=== PATIENT | female | born 1930 | race Caucasian/White ===

== ENCOUNTER 2017-08-04 14:30 | Observation (INO) | payer MEDICARE ==
[~2017-08-04] VITALS: Ht 152.4 cm; Wt 49.4 kg
[2017-08-04] MEDS ORDERED: ASPIRIN 81 MG CHEW TAB PO ONE (15:15)
[2017-08-04 16:20] LABS: CLARITY,URINE CLEAR (CLEAR); COLOR,URINE YELLOW (YELLOW)
[2017-08-04 16:21] LABS: BILIRUBIN,URINE NEGATIVE (NEGATIVE); KETONES,URINE NEGATIVE (NEGATIVE); LEUKOCYTE ESTERASE ,URINE 1+ (NEGATIVE); NITRITE,URINE NEGATIVE (NEGATIVE); PROTEIN,URINE DIPSTICK NEGATIVE (NEGATIVE); URINE UROBILINOGEN 0.2 mg/dL (0.2 - 1)
--- NOTE | 2017-08-04 16:26 | Diagnostic Imaging Report ---
PROCEDURE: A single AP view of the chest. COMPARISON: None. INDICATIONS: AMS FINDINGS: Lines/tubes: None. Lungs: The lungs are well inflated and clear. There is no evidence of pneumonia or pulmonary edema. Pleura: There is no pleural effusion or pneumothorax. Heart and mediastinum: The heart and the mediastinum are unremarkable. Bones: No acute bony abnormality. Mild S-shaped curvature of the thoracolumbar spine. Upper abdomen: No free air under the diaphragm. Surgical clip projects over the right upper quadrant likely related to cholecystectomy. IMPRESSION: No acute cardiopulmonary disease. Dictated by: Uriel Okeefe M.D. on 08/04/2017 at 16:29 Electronically approved by: Uriel Okeefe M.D. on 08/04/2017 at 16:29
--- NOTE | 2017-08-04 16:36 | Diagnostic Imaging Report ---
History:Altered mental status Comparison studies:None Technique: Axial images were obtained from the skull base to the vertex. Coronal and sagittal images reconstructed from the axial data. Intravenous contrast: None Findings: Scalp/skull: No abnormalities. Extra-axial spaces: No masses. No fluid collections. Brain sulci: Mildly prominent. Ventricles: Mild compensatory dilatation. No hydrocephalus. Parenchyma: Left posterior MCA territory infarct involves the superior and middle temporal gyri and the adjacent angular region of the parietal lobe. Confluent and scattered hypodensities in the supratentorial white matter are small vessel ischemic changes. No acute intracranial hemorrhage, mass effect, or edema. Sellar/suprasellar region: No abnormalities. Craniocervical junction: Patent foramen magnum. No Chiari one malformation. Incidental findings: Atherosclerotic calcifications in the carotid siphons and distal vertebral arteries. Mild to moderate opacification of the left mastoid air cells. No abnormalities in the left nasopharynx. Impression: No acute intracranial abnormalities Chronic findings: 1. Mild generalized volume loss. 2. Chronic left posterior MCA territory infarct. 3. Moderate supratentorial white matter small vessel ischemic changes. Signed by: Dr. Jareth Dominguez M.D. on 08/04/2017 5:24 PM
[2017-08-04 16:37] LABS: EPITHELIAL CELLS,URINE MANY /LPF
[2017-08-04 16:39] LABS: RBC,URINE 0-5 /HPF (0-5)
[2017-08-04 16:41] LABS: BACTERIA,URINE RARE /HPF; RENAL EPITHELIAL CELLS,URINE FEW; TRANSITIONAL EPI CELLS,URINE MODERATE
[2017-08-04 17:28] LABS: BASOPHILS # (AUTO) 0.1 (0.0-0.1); BASOPHILS % 0.9 % (0.0-1.0); EOSINOPHILS # (AUTO) 0.5 (0.0-0.4); EOSINOPHILS % 5.8 % (0.0-6.0); HEMOGLOBIN 13.8 g/dL (12.0-16.0); LYMPHOCYTES # (AUTO) 2.2 (1.0-3.2); LYMPHOCYTES % 27.9 % (18.0-39.1); MEAN CORPUSCULAR HEMOGLOBIN 29.5 pg (28-32); MEAN CORPUSCULAR HGB CONC 32.9 g/dL (31-35); MEAN CORPUSCULAR VOLUME 89.7 fL (81-99); MONOCYTES # (AUTO) 0.7 (0.2-0.8); MONOCYTES % 8.4 % (4.4-11.3); NEUTROPHILS # (AUTO) 4.4 (2.1-6.9); NEUTROPHILS % 56.6 % (38.7-80.0); PLATELET COUNT 280 x10e3/uL (140-360); RED BLOOD COUNT 4.68 x10e6/uL (3.6-5.1); RED CELL DISTRIBUTION WIDTH 12.9 % (11.7-14.4)
[2017-08-04 17:36] LABS: INR 0.97; PROTHROMBIN TIME 12.1 seconds (11.9-14.5)
[2017-08-04 17:37] LABS: PARTIAL THROMBOPLASTIN TIME 26.7 seconds (23.8-35.5)
[2017-08-04 17:48] LABS: ALANINE AMINOTRANSFERASE 10 IU/L (0-55); ALBUMIN/GLOBULIN RATIO 1.3 (0.8-2.0); ALKALINE PHOSPHATASE 78 IU/L (40-150); ANION GAP 15.8 mmol/L (8-16); BLOOD UREA NITROGEN 14 mg/dL (7-26); BUN/CREATININE RATIO 18 (6-25); CARBON DIOXIDE 28 mmol/L (22-29); CHLORIDE 99 mmol/L (98-107); CREATINE KINASE 32 IU/L (29-168); CREATININE, SERUM 0.76 mg/dL (0.57-1.11); EST GLOMERULAR FILTRATION RATE > 60 ML/MIN (60-); GLUCOSE 106 mg/dL (74-118); MAGNESIUM 1.6 MG/DL (1.3-2.1); POTASSIUM 3.8 mmol/L (3.5-5.1); SODIUM 139 mmol/L (136-145)
[2017-08-04 18:08] LABS: THYROID STIMULATING HORMONE 2.185 uIU/mL (0.350-4.940)
[2017-08-04] MEDS ORDERED: ASPIRIN 325 MG TAB EC PO STA (18:37)
[2017-08-04] MEDS ORDERED: SODIUM CHLORIDE 0.9% 1000ML 1,000 ML IV SCH (18:37)
[2017-08-04] MEDS ORDERED: ONDANSETRON HCL INJ 2 MG/ML VIAL IV PRN (18:45)
[2017-08-05] MEDS ORDERED: TESSALON PERLE100 MG (00:11)
[2017-08-05] MEDS ORDERED: METFORMIN HCL500 MG PO (00:11)
[2017-08-05] MEDS ORDERED: MILK OF MA2400 MG/10 (00:11)
[2017-08-05] MEDS ORDERED: ASPIR 8181 MG (00:11)
[2017-08-05] MEDS ORDERED: METOPROLOL SUCC25 MG (00:11)
[2017-08-05] MEDS ORDERED: PLAVIX75 MG PO (00:11)
[2017-08-05] MEDS ORDERED: CLONIDINE HCL0.1 MG PO (00:11)
[2017-08-05] MEDS ORDERED: OMEPRAZOLE40 MG (00:11)
[2017-08-05 02:46] LABS: CREATINE KINASE 31 IU/L (29-168)
[2017-08-05 05:53] LABS: BASOPHILS # (AUTO) 0.1 (0.0-0.1); BASOPHILS % 1.3 % (0.0-1.0); EOSINOPHILS # (AUTO) 0.4 (0.0-0.4); EOSINOPHILS % 5.9 % (0.0-6.0); HEMATOCRIT 39.7 % (34.2-44.1); LYMPHOCYTES # (AUTO) 2.1 (1.0-3.2); MEAN CORPUSCULAR HEMOGLOBIN 29.3 pg (28-32); MEAN CORPUSCULAR HGB CONC 32.7 g/dL (31-35); MEAN CORPUSCULAR VOLUME 89.6 fL (81-99); MONOCYTES # (AUTO) 0.7 (0.2-0.8); MONOCYTES % 10.5 % (4.4-11.3); NEUTROPHILS # (AUTO) 3.5 (2.1-6.9); PLATELET COUNT 268 x10e3/uL (140-360); RED BLOOD COUNT 4.43 x10e6/uL (3.6-5.1); RED CELL DISTRIBUTION WIDTH 12.8 % (11.7-14.4)
[2017-08-05 06:25] LABS: ALANINE AMINOTRANSFERASE 9 IU/L (0-55); ALBUMIN 3.4 g/dL (3.5-5.0); ALBUMIN/GLOBULIN RATIO 1.2 (0.8-2.0); ALKALINE PHOSPHATASE 64 IU/L (40-150); ANION GAP 14.6 mmol/L (8-16); BLOOD UREA NITROGEN 13 mg/dL (7-26); BUN/CREATININE RATIO 18 (6-25); CALCIUM 8.9 mg/dL (8.4-10.2); CARBON DIOXIDE 23 mmol/L (22-29); CHLORIDE 106 mmol/L (98-107); CREATININE, SERUM 0.71 mg/dL (0.57-1.11); EST GLOMERULAR FILTRATION RATE > 60 ML/MIN (60-); GLUCOSE 125 mg/dL (74-118); POTASSIUM 4.6 mmol/L (3.5-5.1); SODIUM 139 mmol/L (136-145)
[2017-08-05] MEDS ORDERED: ASPIRIN 325 MG TAB EC PO SCH (09:00)
--- NOTE | 2017-08-05 09:56 | Diagnostic Imaging Report ---
Exam: Brain MRI without IV contrast History: Weakness, dizziness Comparison studies: Head CT the . Technique: Sagittal and axial T2 FS, axial DWI, axial T2*GRE, axial T1 FLAIR and axial coronal T2 FLAIR. Intravenous contrast: None Findings: Scalp: Normal in signal. No masses. Bone marrow: Normal in signal intensity. Brain sulci: Mildly prominent. Ventricles: Moderately dilated with ex vacuo dilatation of the left peritrigonal ventricle due to chronic insult described below. Ventriculomegaly is mildly disproportionate to sulcal prominence which may be related to degree of central greater peripheral cortical volume loss. Consider normal pressure hydrocephalus (NPH) only in the proper clinical setting. Extra axial spaces: No mass, no fluid collection. Parenchyma: No mass, acute hemorrhage or acute ischemia. Chronic insult with encephalomalacia, gliosis and laminar process in the posterior left temporal lobe, left parietal lobe and left lateral occipital lobe in the posterior left MCA territories/MCA cortical border zone. A few scattered and confluent T2 FLAIR hyperintense signal changes in the supratentorial white matter are nonspecific most compatible with chronic small vessel ischemic changes. Small chronic lacunar infarct in the left superior cerebellum. Suprasellar region: No abnormalities. Craniocervical junction: Patent foramen magnum. No Chiari malformation. Vessels: Normal flow-voids in the major intracranial arteries and dural venous sinuses. There is signal abnormality in the distal left internal cervical carotid arteries seen on the axial T2/T2 FLAIR sequence, unclear if this is flow related related to tortuosity or flow-limiting stenosis. Incidental findings: Nonspecific T2 hyperintense reactive changes in the left greater than right mastoids. IMPRESSION: No acute intracranial abnormalities. Chronic findings: 1. Moderate generalized volume loss. 2. Moderate chronic microvascular ischemic changes with small chronic left cerebellar lacunar infarct and chronic insult in the posterior left MCA/MCA cortical border zone. 3. Flow-related artifact versus signal abnormality related to proximal stenosis in the left cervical internal carotid artery. Cervical and intracranial CTA or MRA could further evaluate. 4. Nonspecific ventriculomegaly may be due to volume loss. Consider NPH only in the proper clinical setting. Findings and recommendations were discussed with Dr. Anthony at 9:50 AM on . Signed by: Dr. Gregg Phan M.D. on 08/05/2017 9:53 AM
[2017-08-05 10:14] LABS: CREATINE KINASE 33 IU/L (29-168)
== END 2017-08-05 12:00 | disposition home or self-care (01) ==
LOC: ER 14:30 → ERHOLD 19:10
DX: R53.1 Weakness (principal); R42 Dizziness and giddiness; I10 Essential (primary) hypertension; E11.9 Type 2 diabetes mellitus without complications; R55 Syncope and collapse; Z86.73 Personal history of transient ischemic attack (TIA), and cerebral infarction without residual deficits
CPT/HCPCS: 36415 ×2; 70450; 70551; 71045; 80053 ×2; 81001; 82550 ×2; 82553 ×2; 83735; 83880; 84443; 84484 ×2; 85025 ×2; 85610; 85730; 87086; 93005; 99284; G0378 ×2; J2405; J7030

== ENCOUNTER 2017-10-25 15:56 | Inpatient (IN) | payer MEDICARE ==
[~2017-10-25] VITALS: Ht 152.4 cm; Wt 48.3 kg
[~2017-10-25 15:56] MED LIST: ASPIR 8181 MG; CLONIDINE HCL0.1 MG PO; METFORMIN HCL500 MG PO; METOPROLOL SUCC25 MG; MILK OF MA2400 MG/10; OMEPRAZOLE40 MG PO; PLAVIX75 MG PO; TESSALON PERLE100 MG
[2017-10-25 16:54] LABS: BASOPHILS # (AUTO) 0.1 (0.0-0.1); BASOPHILS % 0.5 % (0.0-1.0); EOSINOPHILS # (AUTO) 0.1 (0.0-0.4); EOSINOPHILS % 1.2 % (0.0-6.0); HEMATOCRIT 42.6 % (34.2-44.1); HEMOGLOBIN 13.8 g/dL (12.0-16.0); LYMPHOCYTES # (AUTO) 0.9 (1.0-3.2); LYMPHOCYTES % 8.3 % (18.0-39.1); MEAN CORPUSCULAR HEMOGLOBIN 29.1 pg (28-32); MEAN CORPUSCULAR HGB CONC 32.4 g/dL (31-35); MEAN CORPUSCULAR VOLUME 89.7 fL (81-99); MONOCYTES # (AUTO) 0.1 (0.2-0.8); MONOCYTES % 1.2 % (4.4-11.3); NEUTROPHILS # (AUTO) 9.2 (2.1-6.9); NEUTROPHILS % 88.5 % (38.7-80.0); PLATELET COUNT 283 x10e3/uL (140-360); RED BLOOD COUNT 4.75 x10e6/uL (3.6-5.1); RED CELL DISTRIBUTION WIDTH 12.6 % (11.7-14.4)
[2017-10-25 16:59] LABS: INR 2.8; PARTIAL THROMBOPLASTIN TIME 32.6 seconds (23.8-35.5); PROTHROMBIN TIME 27.7 seconds (11.9-14.5)
[2017-10-25 17:08] LABS: ALANINE AMINOTRANSFERASE 12 IU/L (0-55); ALBUMIN 3.8 g/dL (3.5-5.0); ALKALINE PHOSPHATASE 105 IU/L (40-150); ANION GAP 21.5 mmol/L (8-16); BLOOD UREA NITROGEN 13 mg/dL (7-26); BUN/CREATININE RATIO 15 (6-25); CALCIUM 9.8 mg/dL (8.4-10.2); CARBON DIOXIDE 20 mmol/L (22-29); CHLORIDE 101 mmol/L (98-107); CREATINE KINASE 37 IU/L (29-168); CREATININE, SERUM 0.86 mg/dL (0.57-1.11); EST GLOMERULAR FILTRATION RATE > 60 ML/MIN (60-); GLUCOSE 122 mg/dL (74-118); MAGNESIUM 1.8 MG/DL (1.3-2.1); POTASSIUM 4.5 mmol/L (3.5-5.1); SODIUM 138 mmol/L (136-145)
[2017-10-25 17:43] LABS: BILIRUBIN,URINE NEGATIVE (NEGATIVE); CLARITY,URINE SL CLOUDY (CLEAR); COLOR,URINE YELLOW (YELLOW); KETONES,URINE NEGATIVE (NEGATIVE); LEUKOCYTE ESTERASE ,URINE 2+ (NEGATIVE); NITRITE,URINE NEGATIVE (NEGATIVE); PROTEIN,URINE DIPSTICK 2+ (NEGATIVE); URINE UROBILINOGEN 0.2 mg/dL (0.2 - 1)
[2017-10-25 17:53] LABS: BACTERIA,URINE MANY /HPF
[2017-10-25] MEDS: CEFTRIAXONE SOD 1 GM VIAL IV SCH (19:24)
--- NOTE | 2017-10-25 19:30 | Diagnostic Imaging Report ---
EXAMINATION: CHEST SINGLE (PORTABLE) COMPARISON: None INDICATION: Altered level of consciousness DISCUSSION: Frontal view of the chest obtained at 1904 hours. HEART AND MEDIASTINUM: The heart is normal in size. The aorta and aortic arch are ectatic LINES: None. LUNGS: The lungs are hyperinflated. Prominent reticular markings in the bases may be the result of chronic atelectasis or early fibrosis. No pneumonia or pulmonary edema. PLEURA: No pleural effusion or pneumothorax. BONES AND SOFT TISSUES: No focal osseous lesion. The soft tissues are normal. IMPRESSION: Pulmonary hyperinflation suggestive of COPD. Bibasilar subsegmental atelectasis or early fibrosis. Signed by: Dr. Gene Lutz MD on 10/25/2017 7:27 PM
--- NOTE | 2017-10-25 19:48 | Diagnostic Imaging Report ---
EXAMINATION: Head CT without contrast. HISTORY:Altered mental status. COMPARISON:CT brain from 08/04/2017 and MRI brain from 08/05/2017. TECHNIQUE: Multidetector axial images were obtained from the foramen magnum to the vertex without contrast. The images were reconstructed using brain and bone algorithms. Thin section brain images were reformatted into coronal and sagittal planes. Dose modulation, iterative reconstruction, and/or weight based adjustment of the mA/kV was utilized to reduce the radiation dose to as low as reasonably achievable. Intravenous contrast: None IMAGE QUALITY: Acceptable. FINDINGS: Skull/scalp: No lytic or blastic. lesions. No surgical changes. Parenchyma: Cortical-based hypodensity in left parieto-occipital region with regional volume loss and exvacuodilatation of the occipital horn and posterior body of left lateral ventricle represents chronic encephalomalacia related to prior vascular insult. Nonspecific bilateral frontoparietal patchy and confluent white matter hypodensity are likely related to small vessel ischemic changes. Old lacunar infarct in left caudate head and left cerebellar hemisphere. No acute hemorrhage, mass or acute major vascular territorial infarct. Possibility of superimposed acute on chronic vascular insult is not excluded. Arteries: No density suggestive of thrombosis. Atherosclerotic calcification bilateral carotid siphon. Dural sinuses: No abnormal density suggestive of thrombosis. Ventricles: Marked ventriculomegaly slightly disproportionate to the amount of cerebral volume loss. Exvacuodilatation of left lateral ventricle. No hydrocephalus. Extra-axial spaces: No abnormality Brain volume: Generalized age-related cerebral volume loss. Craniocervical junction: No mass, Chiari malformation, or basilar invagination. Sella: No mass. Paranasal/mastoid sinuses: Near complete opacification of left mastoid air cells. IMPRESSION: 1. No acute intracranial abnormality. 2. No change since MRI brain from 08/05/2017. Chronic findings: 1. Chronic encephalomalacia in left temporal, parietal occipital region from prior vascular insult. 2. Moderate supratentorial white matter microvascular ischemic changes and chronic lacunar infarcts as above. 3. Generalized age-related cerebral volume loss. 4. Nonspecific ventriculomegaly slightly disproportionate to the amount of cerebral volume loss, may represent normal pressure hydrocephalus in appropriate clinical setting. Signed by: Dr. Precious Chaves M.D. on 10/25/2017 7:44 PM
[2017-10-25] MEDS: SODIUM CHLORIDE 0.9% 1000ML 1,000 ML IV SCH ×2 (20:07→22:21)
[2017-10-25] MEDS ORDERED: DEXTROSE 50% SYRINGE 50 ML IV PRN (22:15)
[2017-10-26] VITALS (7 sets, daily range): BP systolic 114–164; BP diastolic 55–81
[2017-10-26 00:35] LABS: CREATINE KINASE MB 0.7 ng/mL (0-5.0)
[2017-10-26 04:41] LABS: BASOPHILS # (AUTO) 0.1 (0.0-0.1); BASOPHILS % 0.5 % (0.0-1.0); EOSINOPHILS # (AUTO) 0.1 (0.0-0.4); EOSINOPHILS % 0.4 % (0.0-6.0); HEMATOCRIT 36.7 % (34.2-44.1); LYMPHOCYTES # (AUTO) 1.7 (1.0-3.2); LYMPHOCYTES % 9.8 % (18.0-39.1); MEAN CORPUSCULAR HGB CONC 32.7 g/dL (31-35); MEAN CORPUSCULAR VOLUME 88.6 fL (81-99); MONOCYTES # (AUTO) 1.5 (0.2-0.8); MONOCYTES % 8.9 % (4.4-11.3); NEUTROPHILS # (AUTO) 13.5 (2.1-6.9); NEUTROPHILS % 79.9 % (38.7-80.0); PLATELET COUNT 269 x10e3/uL (140-360); RED BLOOD COUNT 4.14 x10e6/uL (3.6-5.1); RED CELL DISTRIBUTION WIDTH 12.9 % (11.7-14.4)
[2017-10-26 05:01] LABS: ALANINE AMINOTRANSFERASE 9 IU/L (0-55); ALBUMIN 3.1 g/dL (3.5-5.0); ALKALINE PHOSPHATASE 81 IU/L (40-150); ANION GAP 14.8 mmol/L (8-16); BLOOD UREA NITROGEN 15 mg/dL (7-26); BUN/CREATININE RATIO 18 (6-25); CALCIUM 8.9 mg/dL (8.4-10.2); CARBON DIOXIDE 24 mmol/L (22-29); CHLORIDE 102 mmol/L (98-107); CREATININE, SERUM 0.85 mg/dL (0.57-1.11); EST GLOMERULAR FILTRATION RATE > 60 ML/MIN (60-); GLUCOSE 123 mg/dL (74-118); POTASSIUM 3.8 mmol/L (3.5-5.1); SODIUM 137 mmol/L (136-145)
[2017-10-26] MEDS: CEFTRIAXONE SOD 1 GM VIAL IV SCH ×2 (05:29→16:44)
[2017-10-26] MEDS: SODIUM CHLORIDE 0.9% 1000ML 1,000 ML IV SCH ×3 (05:29→23:30)
[2017-10-26 05:38] LABS: CREATINE KINASE MB 0.7 ng/mL (0-5.0)
[2017-10-26 07:29] LABS: ANISOCYTOSIS SLIGHT; BAND NEUTROPHILS % (MANUAL) 1 %; EOSINOPHILS % (MANUAL) 3 % (0-7); LYMPHOCYTES % (MANUAL) 8 % (19-48); MONOCYTES % (MANUAL) 9 % (3.4-9.0); NEUTROPHILS % (MANUAL) 79 % (40-74); RBC MORPHOLOGY COMMENT NORMAL
[2017-10-26 07:30] LABS: PLATELET ESTIMATE ADEQUATE; PLATELET MORPHOLOGY COMMENT NORMAL
[2017-10-26] MEDS: INSULIN REGULAR, HUMAN 100 UNIT/1 ML 3ML VIAL SQ SCH ×4 (07:30→20:23)
[2017-10-26] MEDS ORDERED: MAGNESIUM HYDROXIDE 30 ML UDC PO SCH (09:45)
[2017-10-26] MEDS ORDERED: MAGNESIUM HYDROXIDE 30 ML UDC PO PRN (10:00)
--- NOTE | 2017-10-26 11:50 | Diagnostic Imaging Report ---
EXAMINATION: CHEST SINGLE (PORTABLE) INDICATION: Altered mental status. COMPARISON: Chest radiograph 10/25/17 FINDINGS: TUBES and LINES: None. LUNGS: Low lung volumes. Reticular opacities are present at the lung bases, right greater than left. There are new mild patchy left basilar opacities. No evidence of pulmonary edema. PLEURA: No pleural effusion or pneumothorax. HEART AND MEDIASTINUM: The cardiomediastinal silhouette is unchanged. Ectatic thoracic aorta. BONES AND SOFT TISSUES: No acute osseous lesion. Soft tissues are unremarkable. UPPER ABDOMEN: No free air under the diaphragm. IMPRESSION: Low lung volumes with bibasilar linear opacities may represent atelectasis or early fibrosis. New mild patchy left basilar opacities may represent atelectasis or aspiration in the appropriate clinical context. Signed by: Dr. Nguyễn Spring MD on 10/26/2017 11:47 AM
[2017-10-26] MEDS: CLONIDINE HCL 0.1 MG TAB PO SCH (17:01)
[2017-10-26] MEDS: ACETAMINOPHEN 325 MG TAB PO PRN (20:50)
[2017-10-27] VITALS (7 sets, daily range): BP systolic 97–193; BP diastolic 51–86
[2017-10-27 04:34] LABS: BASOPHILS # (AUTO) 0.1 (0.0-0.1); BASOPHILS % 0.6 % (0.0-1.0); EOSINOPHILS # (AUTO) 0.1 (0.0-0.4); EOSINOPHILS % 1.7 % (0.0-6.0); HEMOGLOBIN 10.8 g/dL (12.0-16.0); LYMPHOCYTES # (AUTO) 1.4 (1.0-3.2); LYMPHOCYTES % 16.9 % (18.0-39.1); MEAN CORPUSCULAR HEMOGLOBIN 29.3 pg (28-32); MEAN CORPUSCULAR HGB CONC 32.7 g/dL (31-35); MEAN CORPUSCULAR VOLUME 89.4 fL (81-99); MONOCYTES # (AUTO) 0.9 (0.2-0.8); MONOCYTES % 10.5 % (4.4-11.3); NEUTROPHILS # (AUTO) 5.9 (2.1-6.9); NEUTROPHILS % 69.9 % (38.7-80.0); RED BLOOD COUNT 3.69 x10e6/uL (3.6-5.1)
[2017-10-27 04:35] LABS: PLATELET COUNT 210 x10e3/uL (140-360)
[2017-10-27 04:43] LABS: INR 1.94; PROTHROMBIN TIME 20.8 seconds (11.9-14.5)
[2017-10-27 04:49] LABS: ANION GAP 10.8 mmol/L (8-16); BLOOD UREA NITROGEN 12 mg/dL (7-26); BUN/CREATININE RATIO 17 (6-25); CALCIUM 8.2 mg/dL (8.4-10.2); CARBON DIOXIDE 21 mmol/L (22-29); CHLORIDE 105 mmol/L (98-107); CREATININE, SERUM 0.72 mg/dL (0.57-1.11); EST GLOMERULAR FILTRATION RATE > 60 ML/MIN (60-); GLUCOSE 112 mg/dL (74-118); SODIUM 134 mmol/L (136-145)
[2017-10-27 04:58] LABS: POTASSIUM 2.8 mmol/L (3.5-5.1)
[2017-10-27] MEDS: CEFTRIAXONE SOD 1 GM VIAL IV SCH ×2 (05:37→18:36)
[2017-10-27] MEDS ORDERED: POTASSIUM CHLORIDE 20 MEQ TAB CR PO STA (05:53)
[2017-10-27] MEDS ORDERED: POTASSIUM CHLORIDE 20 MEQ TAB CR PO ONE (07:00)
[2017-10-27] MEDS: INSULIN REGULAR, HUMAN 100 UNIT/1 ML 3ML VIAL SQ SCH ×4 (07:30→21:00)
[2017-10-27] MEDS ORDERED: PANTOPRAZOLE SOD 40 MG TABEC PO SCH (09:00)
[2017-10-27] MEDS: CLONIDINE HCL 0.1 MG TAB PO SCH ×2 (09:42→17:14)
[2017-10-27] MEDS: PANTOPRAZOLE SOD 40 MG TABEC PO SCH (09:42)
[2017-10-27] MEDS: CLOPIDOGREL BISULFATE 75 MG TAB PO SCH (09:42)
[2017-10-27] MEDS ORDERED: WARFARIN SOD 3 MG TAB PO ONE (10:00)
--- NOTE | 2017-10-27 11:36 | Diagnostic Imaging Report ---
EXAMINATION: PA and lateral views of the chest. COMPARISON: 10/26/2017 CLINICAL HISTORY: Concern for aspiration DISCUSSION: Lungs are well-inflated. As before, there is patchy retrocardiac airspace opacity, which likely represents atelectasis. No new consolidations. Stable cardiomediastinal contour with tortuosity of the thoracic aorta. No acute osseous abnormality. IMPRESSION: Patchy retrocardiac airspace disease likely reflects atelectasis. No specific radiographic findings of aspiration. Signed by: Dr. Gregg Henson M.D. on 10/27/2017 11:33 AM
[2017-10-27] MEDS: SODIUM CHLORIDE 0.9% 1000ML 1,000 ML IV SCH (13:49)
[2017-10-27] MEDS: ACETAMINOPHEN 325 MG TAB PO PRN (20:25)
[2017-10-28] VITALS (8 sets, daily range): BP systolic 156–208; BP diastolic 68–96
[2017-10-28] MEDS: SODIUM CHLORIDE 0.9% 1000ML 1,000 ML IV SCH (04:20)
[2017-10-28 05:14] LABS: ANION GAP 12.1 mmol/L (8-16); BLOOD UREA NITROGEN 10 mg/dL (7-26); BUN/CREATININE RATIO 15 (6-25); CALCIUM 8.6 mg/dL (8.4-10.2); CARBON DIOXIDE 21 mmol/L (22-29); CHLORIDE 109 mmol/L (98-107); CREATININE, SERUM 0.67 mg/dL (0.57-1.11); EST GLOMERULAR FILTRATION RATE > 60 ML/MIN (60-); GLUCOSE 84 mg/dL (74-118); POTASSIUM 3.1 mmol/L (3.5-5.1); SODIUM 139 mmol/L (136-145)
[2017-10-28] MEDS: CEFTRIAXONE SOD 1 GM VIAL IV SCH ×2 (06:21→18:42)
[2017-10-28] MEDS: INSULIN REGULAR, HUMAN 100 UNIT/1 ML 3ML VIAL SQ SCH ×4 (07:30→20:37)
[2017-10-28] MEDS: CLONIDINE HCL 0.1 MG TAB PO SCH ×2 (07:50→16:15)
[2017-10-28] MEDS: CLOPIDOGREL BISULFATE 75 MG TAB PO SCH (10:25)
[2017-10-28] MEDS: PANTOPRAZOLE SOD 40 MG TABEC PO SCH (10:25)
[2017-10-28] MEDS ORDERED: POTASSIUM CHLORIDE 20 MEQ TAB CR PO ONE (10:30)
[2017-10-28 10:44] LABS: INR 1.74; PROTHROMBIN TIME 19.1 seconds (11.9-14.5)
[2017-10-28] MEDS ORDERED: FUROSEMIDE INJ 10 MG/ML 2 ML VIAL IV ONE (16:15)
[2017-10-28] MEDS: METOPROLOL TARTRATE 25 MG TAB PO SCH (16:18)
[2017-10-28] MEDS ORDERED: ALPRAZOLAM 0.5 MG TAB PO ONE (20:00)
[2017-10-29] MEDS: CEFTRIAXONE SOD 1 GM VIAL IV SCH (06:22)
[2017-10-29 06:29] VITALS: BP 174/73
[2017-10-29] MEDS: INSULIN REGULAR, HUMAN 100 UNIT/1 ML 3ML VIAL SQ SCH ×3 (07:30→16:22)
[2017-10-29 08:00] VITALS: BP 161/77
[2017-10-29 08:05] VITALS: BP 161/77
[2017-10-29] MEDS: CLONIDINE HCL 0.1 MG TAB PO SCH ×2 (08:22→16:20)
[2017-10-29] MEDS: PANTOPRAZOLE SOD 40 MG TABEC PO SCH (08:23)
[2017-10-29] MEDS: CLOPIDOGREL BISULFATE 75 MG TAB PO SCH (08:23)
[2017-10-29] MEDS: METOPROLOL TARTRATE 25 MG TAB PO SCH ×2 (08:23→16:20)
[2017-10-29 10:03] LABS: INR 1.32; PROTHROMBIN TIME 15.4 seconds (11.9-14.5)
[2017-10-29 11:11] LABS: ANION GAP 17.1 mmol/L (8-16); BLOOD UREA NITROGEN 12 mg/dL (7-26); BUN/CREATININE RATIO 15 (6-25); CALCIUM 9.1 mg/dL (8.4-10.2); CARBON DIOXIDE 20 mmol/L (22-29); CHLORIDE 101 mmol/L (98-107); CREATININE, SERUM 0.81 mg/dL (0.57-1.11); EST GLOMERULAR FILTRATION RATE > 60 ML/MIN (60-); GLUCOSE 201 mg/dL (74-118); POTASSIUM 4.1 mmol/L (3.5-5.1); SODIUM 134 mmol/L (136-145)
[2017-10-29 12:00] VITALS: BP 133/64
[2017-10-29] MEDS ORDERED: CEFUROXIME250 MG PO (12:10)
[2017-10-29] MEDS ORDERED: MAGNESIUM SULFATE 2GM/50ML 50 ML IV ONE ×2 (12:15)
[2017-10-29 16:00] VITALS: BP 168/76
[2017-10-29] MEDS ORDERED: WARFARIN SOD 5 MG TAB PO SCH (17:00)
== END 2017-10-29 16:46 | disposition home health service (06) | DRG 689 ==
LOC: ER 15:56 → ERHOLD 22:10 → MED/SURG2 23:21
PROVIDERS: ADMIT Internal Medicine; ATTEND Internal Medicine
DX: N39.0 Urinary tract infection, site not specified (principal); G93.41 Metabolic encephalopathy; I48.2 Chronic atrial fibrillation; I10 Essential (primary) hypertension; Z79.01 Long term (current) use of anticoagulants; B96.1 Klebsiella pneumoniae [K. pneumoniae] as the cause of diseases classified elsewhere; Z86.73 Personal history of transient ischemic attack (TIA), and cerebral infarction without residual deficits
CPT/HCPCS: 36415; 51700; 70450; 71045; 71046; 80048; 80053; 81001; 82550; 82553; 82948; 83735; 84484; 85025; 85610; 85730; 87040; 87086; 87186; 93005; 99285; J0696; J1940; J7030

== ENCOUNTER 2017-11-02 16:44 | Inpatient (IN) | payer MEDICARE ==
[~2017-11-02] VITALS: Ht 153.7 cm; Wt 53.7 kg
[~2017-11-02 16:44] MED LIST changes: +CEFUROXIME250 MG PO
[2017-11-02 17:53] LABS: BASOPHILS # (AUTO) 0.1 (0.0-0.1); BASOPHILS % 1.2 % (0.0-1.0); EOSINOPHILS # (AUTO) 0.5 (0.0-0.4); EOSINOPHILS % 5.7 % (0.0-6.0); HEMATOCRIT 39.5 % (34.2-44.1); HEMOGLOBIN 12.8 g/dL (12.0-16.0); LYMPHOCYTES # (AUTO) 2.6 (1.0-3.2); LYMPHOCYTES % 30.7 % (18.0-39.1); MEAN CORPUSCULAR HEMOGLOBIN 28.9 pg (28-32); MEAN CORPUSCULAR HGB CONC 32.4 g/dL (31-35); MEAN CORPUSCULAR VOLUME 89.2 fL (81-99); MONOCYTES # (AUTO) 0.9 (0.2-0.8); MONOCYTES % 10.2 % (4.4-11.3); NEUTROPHILS # (AUTO) 4.3 (2.1-6.9); NEUTROPHILS % 51.6 % (38.7-80.0); PLATELET COUNT 387 x10e3/uL (140-360); RED BLOOD COUNT 4.43 x10e6/uL (3.6-5.1); RED CELL DISTRIBUTION WIDTH 12.7 % (11.7-14.4)
[2017-11-02 18:00] LABS: CLARITY,URINE CLEAR (CLEAR); COLOR,URINE YELLOW (YELLOW)
[2017-11-02 18:01] LABS: BILIRUBIN,URINE NEGATIVE (NEGATIVE); KETONES,URINE NEGATIVE (NEGATIVE); LEUKOCYTE ESTERASE ,URINE NEGATIVE (NEGATIVE); NITRITE,URINE NEGATIVE (NEGATIVE); PROTEIN,URINE DIPSTICK NEGATIVE (NEGATIVE); URINE UROBILINOGEN 0.2 mg/dL (0.2 - 1)
[2017-11-02 18:05] LABS: ALANINE AMINOTRANSFERASE 11 IU/L (0-55); ALBUMIN 3.5 g/dL (3.5-5.0); ALBUMIN/GLOBULIN RATIO 0.9 (0.8-2.0); ALKALINE PHOSPHATASE 84 IU/L (40-150); ANION GAP 19.7 mmol/L (8-16); BLOOD UREA NITROGEN 13 mg/dL (7-26); BUN/CREATININE RATIO 16 (6-25); CARBON DIOXIDE 22 mmol/L (22-29); CHLORIDE 102 mmol/L (98-107); CREATININE, SERUM 0.79 mg/dL (0.57-1.11); EST GLOMERULAR FILTRATION RATE > 60 ML/MIN (60-); GLUCOSE 128 mg/dL (74-118); POTASSIUM 3.7 mmol/L (3.5-5.1); SODIUM 140 mmol/L (136-145)
[2017-11-02 18:15] LABS: WBC,URINE (MAN) 0-5 /HPF (0-5)
[2017-11-02] MEDS ORDERED: WARFARIN SODIUM3 MG PO (18:41)
[2017-11-02] MEDS ORDERED: CLONIDINE HCL 0.1 MG TAB ONE (19:24)
--- NOTE | 2017-11-02 19:24 | Diagnostic Imaging Report ---
EXAMINATION: CHEST SINGLE (PORTABLE) INDICATION: \S\LACTIC ACIDEMIA AMS \S\[id number] \S\[id number] COMPARISON: 10/27/2017 FINDINGS: AP view TUBES and LINES: None. LUNGS: Limited by low lung volumes. Mild central vascular congestion. There is no evidence of pneumonia or pulmonary edema. PLEURA: No pleural effusion or pneumothorax. HEART AND MEDIASTINUM: The cardiomediastinal silhouette is unremarkable. Aorta is tortuous. BONES AND SOFT TISSUES: No acute osseous lesion. Soft tissues are unremarkable. UPPER ABDOMEN: No free air under the diaphragm. IMPRESSION: No definite acute thoracic abnormality. Mild central vascular congestion. Signed by: Dr. Nelson Serrano MD on 11/02/2017 7:20 PM
[2017-11-02] MEDS ORDERED: CLONIDINE HCL 0.1 MG TAB PO ONE (19:30)
--- NOTE | 2017-11-02 20:10 | Diagnostic Imaging Report ---
History:Altered mental status Comparison studies:None Technique: Axial images were obtained from the skull base to the vertex. Coronal and sagittal images reconstructed from the axial data. Intravenous contrast: None Dose modulation, iterative reconstruction, and/or weight based adjustment of the mA/kV was utilized to reduce the radiation dose to as low as reasonably achievable. Findings: Scalp/skull: No abnormalities. Extra-axial spaces: No masses. No fluid collections. Brain sulci: Moderately prominent. Ventricles: Moderate compensatory dilatation. No hydrocephalus. Parenchyma: Scattered and confluent hypodensities in the supratentorial white matter are small vessel ischemic changes. Cortical-based hypodensity at the left posterior temporal and inferior parietal lobule with exvacuodilatation of the posterior lateral ventricle No masses, hemorrhage, acute or chronic cortical vascular insults. Sellar/suprasellar region: No abnormalities. Craniocervical junction: Patent foramen magnum. No Chiari one malformation. Incidental findings: Atherosclerotic calcifications in the carotid siphons . Opacification of the left mastoid air cells and middle ear, related to inflammatory changes Impression: No acute abnormalities. Chronic findings: 1. Moderate volume loss more significant at the temporal lobes. 2. Moderate supratentorial white matter small vessel ischemic changes. 3. Encephalomalacia at the left posterior temporal and inferior parietal lobule secondary to remote insult 4. Left otomastoiditis. Signed by: DR Everett Zhao M.D. on 11/02/2017 8:06 PM
[2017-11-02] MEDS ORDERED: DEXTROSE 50% SYRINGE 50 ML IV PRN ×2 (23:30)
[2017-11-03] VITALS (7 sets, daily range): BP systolic 111–163; BP diastolic 64–96
[2017-11-03 04:46] LABS: BASOPHILS # (AUTO) 0.1 (0.0-0.1); BASOPHILS % 1.1 % (0.0-1.0); EOSINOPHILS # (AUTO) 0.4 (0.0-0.4); EOSINOPHILS % 6.1 % (0.0-6.0); HEMATOCRIT 35.6 % (34.2-44.1); HEMOGLOBIN 11.7 g/dL (12.0-16.0); LYMPHOCYTES # (AUTO) 2.4 (1.0-3.2); LYMPHOCYTES % 33.6 % (18.0-39.1); MEAN CORPUSCULAR HEMOGLOBIN 28.7 pg (28-32); MEAN CORPUSCULAR HGB CONC 32.9 g/dL (31-35); MEAN CORPUSCULAR VOLUME 87.5 fL (81-99); MONOCYTES # (AUTO) 0.8 (0.2-0.8); MONOCYTES % 11.3 % (4.4-11.3); NEUTROPHILS # (AUTO) 3.4 (2.1-6.9); NEUTROPHILS % 47.5 % (38.7-80.0); PLATELET COUNT 349 x10e3/uL (140-360); RED BLOOD COUNT 4.07 x10e6/uL (3.6-5.1); RED CELL DISTRIBUTION WIDTH 12.6 % (11.7-14.4)
[2017-11-03 05:08] LABS: ANION GAP 15.6 mmol/L (8-16); BLOOD UREA NITROGEN 11 mg/dL (7-26); BUN/CREATININE RATIO 14 (6-25); CALCIUM 9.2 mg/dL (8.4-10.2); CARBON DIOXIDE 24 mmol/L (22-29); CHLORIDE 104 mmol/L (98-107); CREATININE, SERUM 0.77 mg/dL (0.57-1.11); EST GLOMERULAR FILTRATION RATE > 60 ML/MIN (60-); GLUCOSE 136 mg/dL (74-118); POTASSIUM 3.6 mmol/L (3.5-5.1); SODIUM 140 mmol/L (136-145)
[2017-11-03] MEDS: INSULIN REGULAR, HUMAN 100 UNIT/1 ML 3ML VIAL SQ SCH ×4 (07:30→21:02)
[2017-11-03] MEDS ORDERED: INSULIN REGULAR, HUMAN 100 UNIT/1 ML 3ML VIAL SQ SCH (07:30)
[2017-11-03] MEDS: CLONIDINE HCL 0.1 MG TAB PO SCH ×2 (10:00→16:54)
[2017-11-03] MEDS ORDERED: BENZONATATE 100 MG CAP PO PRN (11:45)
[2017-11-03] MEDS ORDERED: MAGNESIUM HYDROXIDE 30 ML UDC PO PRN (11:45)
--- NOTE | 2017-11-03 12:27 | History and Physical ---
Ms. Walsh is a complex and very elderly 87-year-old woman who presented to the emergency room under the care of her daughter in the evening of the with a complaint of weakness and fall. HISTORY OF PRESENT ILLNESS: The daughter tells me that Ms. Walsh had been sitting out in the patio and that when she attempted to get up to come into the house, she could not use her walker and could not walk and was helped down to the floor. PAST MEDICAL HISTORY: Significant for previous cerebrovascular accident, hospitalized in [place], [place] in August 2016. She evidently had atrial fibrillation at that time and has used antiplatelet anticoagulants since then. CURRENT HOME MEDICATIONS: Include warfarin either 3 or 5 mg daily, it is not clear. Omeprazole 40 mg daily, metoprolol succinate 25 mg daily, metformin 500 mg twice a day, clopidogrel 75 mg daily, clonidine 0.1 mg b.i.d., cefuroxime 250 mg tablet q.12 hours for 7 days for urinary tract infection, Tessalon Perles, and aspirin 81 mg daily. PERSONAL AND SOCIAL HISTORY: She does not smoke or drink. She lives with her daughter. PHYSICAL EXAMINATION GENERAL: At this time shows a very elderly white woman who is awake, alert, but is unable to tell me her name. She makes some sounds, but unintelligible. HEAD, EYES, EARS, NOSE, AND THROAT: Otherwise, unremarkable. NECK: No jugular venous distention. THORAX: Heart sounds S1, S2 are equal. No murmurs. LUNGS: Clear. ABDOMEN: Protuberant with healed lower midline incision. EXTREMITIES: No cyanosis, clubbing or edema. NEUROLOGICAL: Patient moves all extremities, cannot say any intelligible words. PERTINENT LABORATORY STUDIES: Unrevealing. There is no PT/INR available. She has an MRI that has been performed this morning, still pending. MRI in July 2017 showed volume loss and CAT scan of the head in July 2017 showed chronic left posterior middle cerebral circulation stroke. Chest x-ray unremarkable. ASSESSMENT 1. Possible new transient ischemic attack or stroke. 2. Possible dementia. 3. History of hypertension. 4. History of atrial fibrillation, now in sinus rhythm. PLAN: We withhold her warfarin until PT/INR is available. We will await result of MRI and neurology evaluation. We will ask for physical therapy evaluation and further management based on clinical course. Job#: [id number] SUB cc:Dr. AMINATA WEBB
[2017-11-03 12:38] LABS: INR 1.59; PROTHROMBIN TIME 17.8 seconds (11.9-14.5)
[2017-11-03 13:42] LABS: CHOL/HDL RATIO 6.3 (3.0-3.6)
--- NOTE | 2017-11-03 14:40 | Consultation ---
DATE OF CONSULTATION: November 03, 2017 NEUROLOGY CONSULTATION HISTORY OF PRESENT ILLNESS: Ms. Walsh is an 87-year-old [id number] woman with past medical history significant for hypertension, hyperlipidemia, diabetes mellitus type 2, atrial fibrillation, and a prior stroke with residual dysarthria, mixed aphasia, and right hemiparesis, admitted to [facility] on November 02, 2017, with symptoms concerning for a stroke. Approximately 2 days prior to admission, the patient's daughter noted worsening dysarthria. At approximately 1500 or 1600 on the day of admission, the patient's daughter reports Ms. Walsh had difficulty standing from a seated position and ambulating with her walker. The patient's daughter noted worsening of the patient's mixed aphasia, expressive more so than receptive, at the same time. The patient's daughter, concerned the patient was having either a transient ischemic attack or stroke, alerted emergency medical services. Ms. Walsh was transported to the emergency center at [facility] via ambulance for further evaluation of her symptoms. Upon arrival in the emergency center, the patient was afebrile with a blood pressure of 183/88 mmHg and a pulse of 78 beats per minute. The patient's neurological examination was documented as being nonfocal. A CT of the brain without contrast was performed in the emergency center. The study did not show evidence of recent large territorial ischemia or hemorrhage. Ms. Walsh was admitted to [facility] as an inpatient for further evaluation and treatment and her symptoms. The patient's daughter does not report a visual field cut or other deficit. She does report possible left facial weakness as well as worsening right hemiparesis. The patient's daughter reports gait and balance impairment as detailed above. The patient's daughter is not aware of new or worsening numbness or dizziness. It is possible Ms. Walsh has experienced worsening confusion over the past 2 days. However, this is difficult to ascertain given the patient's mixed aphasia. Ms. Walsh was recently hospitalized and treated for a urinary tract infection which did cause worsening confusion. REVIEW OF SYSTEMS: As per the patient's daughter, confusion, dysarthria, mixed aphasia, left facial droop, right hemiparesis, impairment of balance and gait. Otherwise the 12-point review of systems was negative. PAST MEDICAL HISTORY: Hypertension, hyperlipidemia, diabetes mellitus type 2, atrial fibrillation, depression, a prior left RETORT SETTER territory stroke with residual dysarthria, aphasia, and right hemiparesis, right breast cancer x2. PAST SURGICAL HISTORY: Right breast partial mastectomy x2, lumbar spine surgery, cholecystectomy, right knee replacement, bilateral cataract removal, hysterectomy. PAST HOSPITALIZATIONS: Surgeries/procedures as listed, urinary tract infection, transient ischemic attack, stroke, childbirth x3. FAMILY MEDICAL HISTORY: The patient's paternal and maternal grandparents are . Their medical histories are unknown. Ms. Walsh's father is . His medical history is unknown. The patient's mother is from a stroke. The patient had 3 sisters, all of whom are . One sister had a history of heart disease and cancer. A second sister was killed in a motor vehicle accident. The third sister's medical history is unknown. Ms. Walsh has 3 children, 1 daughter and 2 sons, all of whom are living. Her oldest son has hyperlipidemia. Otherwise her children are healthy. SOCIAL HISTORY: Ms. Walsh is a . She is retired. The patient's daughter endorses a remote history of tobacco use. There is no reported current or prior alcohol or recreational drug use. HOME MEDICATIONS: Please see the list provided in the electronic medical records. ALLERGIES: PENICILLIN. NO KNOWN FOOD ALLERGIES. NO KNOWN ALLERGIES TO LATEX. NO KNOWN ALLERGIES TO IODINE OR OTHER CONTRAST MATERIALS. PHYSICAL EXAMINATION VITAL SIGNS: Height 60.5 inches, weight 111 pounds, BMI 21.3 kg per meter squared. Blood pressure 137/64 mmHg, pulse 57 beats per minute, respiratory rate 19 breaths per minute, oxygen saturation 94% on room air. GENERAL: Patient is awake and alert, does not appear distressed. HEENT: Normocephalic, atraumatic. Pupils are surgical. Moist mucous membranes. NECK: Supple. No appreciable thyromegaly. No appreciable carotid bruits. CARDIOVASCULAR: S1, S2, regular rate and rhythm. No murmurs, rubs, or gallops. RESPIRATORY: Clear to auscultation bilaterally. No wheezes, rhonchi, or rales. EXTREMITIES: The skin is warm and dry. No clubbing, cyanosis, or edema. The posterior tibial and dorsalis pedis pulses are 1+ and symmetric. SKIN: No rashes or lesions. NEUROLOGIC MEMORY/ATTENTION: The patient is awake and alert. Orientation cannot be assessed secondary to the patient being aphasic. CRANIAL NERVES: Cranial nerve 1--Not tested. Cranial nerve 2, 3, 4, and 6--Pupils are surgical. Extraocular movements are grossly intact. No nystagmus. Cranial nerve 5--Sensation to light touch and pinprick is intact in the bilateral V1 through V3 distributions. Strength of the temporalis and masseter muscles is within normal limits. Cranial nerve 7--The face is symmetric, as are all facial movements. Strength is within normal limits. Cranial nerve 8--Hearing is diminished to finger rub bilaterally. Cranial nerve 9, 10--The soft palate elevates equally and symmetrically. Cranial nerve 11--Normal strength of the bilateral sternocleidomastoid and trapezius muscles. Cranial nerve 12--The tongue protrudes midline and moves symmetrically from side to side. STRENGTH: Bulk is normal. There are normal functional movements of both arms and both legs. Drift is noted in the right arm. tone is normal. DTRS: Deep tendon reflexes are 1+ and symmetric at the triceps, biceps, brachial radialis, and patellas. Deep tendon reflexes are absent and symmetric at the Achilles. Plantar responses are flexor on the left, mute on the right. SENSATION: Ms. Walsh withdraws all 4 extremities to peripheral noxious stimulation. CEREBELLAR: Unable to assess secondary to the patient being aphasic. GAIT: Deferred. SPEECH: Spontaneous speech is limited. Speech is moderately dysarthric with moderate to severe mixed aphasia. Repetition is not intact. Positive mimicking. INVOLUNTARY MOVEMENTS: None. PRONATOR DRIFT: As per motor exam. LABORATORY DATA: The patient's basic metabolic panel is significant for an elevated serum glucose of 136. Lactic acid is elevated at 29.6. The liver function panel is within normal limits. The CBC with differential and platelets reveals a white blood cell count of 7.06 with 47.5% neutrophils, 33.6% lymphocytes, 11.3% monocytes, 6.1% eosinophils, and 1.1% basophils. PT 17.8, INR 1.59. A urinalysis is unremarkable. Blood cultures collected on November 02, 2017, are pending. DIAGNOSTIC STUDIES Electrocardiogram November 02, 2017: Sinus rhythm at 70 beats per minute with possible premature atrial contractions. CT of the brain without contrast November 01, 2017: On my review, there is no evidence of recent large territorial ischemia, hemorrhage, mass, or mass effect. There is encephalomalacia in the left RETORT SETTER distribution compatible with a prior vascular insult. There is diffuse cerebral atrophy, more pronounced over the temporal lobes. There are findings compatible with moderate to severe chronic small-vessel ischemic disease. There is left otomastoiditis. Chest x-ray November 02, 2017: No definite acute thoracic abnormality. Mild central vascular congestion. MRI of the brain without contrast November 03, 2017: On my review, there is no evidence of recent large territorial ischemia, hemorrhage, mass, or mass effect. There is encephalomalacia in the left posterior cerebral artery distribution compatible with a prior vascular insult in that region. There is diffuse cerebral atrophy, more prominent at the temporal lobes. There are confluent T2/FLAIR hyperintense foci of the deep white matter compatible with moderate to severe chronic small-vessel ischemic disease. ASSESSMENT AND PLAN: Ms. Walsh is an 87-year-old [id number] woman with past medical history as documented, admitted with worsening dysarthria, mixed aphasia, and right hemiparesis. The patient has undergone a thorough neurological examination with findings detailed above. The patient's laboratory data and other diagnostic studies have been reviewed and are documented above. Based on my review of the MRI of the brain without contrast, it does not appear Ms. Walsh has experienced a new stroke. Due to the daughter's report of worsening of prior deficits, it is probable Ms. Walsh is experiencing recrudescence of prior deficits in a setting of hypertensive emergency (multiple blood pressure readings with a systolic greater than 200 mmHg) or infection (left ear infection). Recommendations are as follows: 1. Follow up the final report of the MRI of the brain without contrast. 1. A lipid panel and hemoglobin A1c will be drawn to ensure the patient's vascular risk factors are well controlled. 2. Defer treatment of the remaining comorbidities to the primary and other services following the patient. Thank you for this consultation. I will continue to follow the patient while she remains in the hospital. Time spent: 70 minutes. Job#: [id number]
[2017-11-03] MEDS: METFORMIN HCL 500 MG TAB PO SCH (16:54)
[2017-11-03] MEDS ORDERED: WARFARIN SOD 5 MG TAB PO SCH (17:00)
[2017-11-03] MEDS ORDERED: CEFUROXIME AXETIL 250 MG TAB PO SCH (17:00)
[2017-11-03] MEDS ORDERED: WARFARIN SOD 3 MG TAB PO SCH ×2 (17:00→21:00)
[2017-11-03] MEDS: CEFUROXIME AXETIL 250 MG TAB PO SCH (21:02)
[2017-11-04] VITALS: BP 153/71
[2017-11-04 04:00] VITALS: BP 132/79
[2017-11-04] MEDS: INSULIN REGULAR, HUMAN 100 UNIT/1 ML 3ML VIAL SQ SCH (07:30)
[2017-11-04] MEDS ORDERED: PANTOPRAZOLE SOD 40 MG TABEC PO SCH (07:30)
[2017-11-04 08:00] VITALS: BP 188/79
[2017-11-04] MEDS: METFORMIN HCL 500 MG TAB PO SCH (08:16)
[2017-11-04] MEDS: CLONIDINE HCL 0.1 MG TAB PO SCH (08:17)
[2017-11-04] MEDS: CEFUROXIME AXETIL 250 MG TAB PO SCH (08:17)
[2017-11-04] MEDS ORDERED: CLOPIDOGREL BISULFATE 75 MG TAB PO SCH (09:00)
[2017-11-04] MEDS ORDERED: ASPIRIN 81 MG CHEW TAB PO SCH (09:00)
[2017-11-04] MEDS ORDERED: METOPROLOL SUCCINATE 25 MG TAB XL PO SCH (09:00)
--- NOTE | 2017-11-04 10:51 | Discharge Summary ---
Ms. Walsh is a very elderly and very debilitated 87-year-old woman who was brought back to the emergency room by her daughter on the evening of November 02, 2017, after weakness and falling at home, inability to stand. HOSPITAL COURSE: Patient was found to have residual of old stroke where she was hospitalized in [place], [place], in August 2016. Evidently, previous intermittent atrial fibrillation although the patient currently in sinus rhythm. Her INR was checked, which was 1.59. She was continued on her home medications, and was seen in consultation by Dr. Schmitz who felt that her problems were residual of old stroke. Today, the patient and her daughter have been offered skilled care. But, report that they prefer to go home. They are cautioned that she will continue to have debility, and can expect further problems as a result of the same. She is discharged on her current medications, which includes: 1. Aspirin 81 mg daily. 2. Tessalon Perles. 3. Cefuroxime 250 mg b.i.d. 4. Clonidine 0.1 mg b.i.d. 5. Plavix 75 mg daily. 6. Metformin 500 mg b.i.d. 7. Metoprolol succinate 25 mg daily. 8. Omeprazole. 9. Warfarin 5 mg daily. She follow up with Dr. Gaviria in 2 weeks. DISCHARGE DIAGNOSES 1. Residual of old stroke. 2. Intermittent atrial fibrillation. 3. Type 2 adult-onset diabetes. CHIQUI HAAS MD Job#: [id number] [place] cc:MD ANIA LIEBERMAN MD
--- NOTE | 2017-11-04 13:30 | Diagnostic Imaging Report ---
Exam: Brain MRI without IV contrast History: Altered mental status Comparison studies: Multiple prior head CTs which date to 08/04/2017, most recent 11/02/2017. Brain MRI 08/05/2017. Technique: Sagittal and axial T2 FS, axial DWI, axial T2*GRE, axial T1 FLAIR and axial coronal T2 FLAIR. Intravenous contrast: None I was notified of this exam at 1:04 PM on 11/04/2017. Findings: Scalp: Normal in signal. No masses. Bone marrow: Normal in signal intensity. Brain sulci: Sylvian fissures are moderately prominent. Remaining sulci are mildly prominent. Ventricles: Mild ex vacuo dilatation of the left ventricular trigone due to chronic vascular insult described below. Moderately dilated, slightly disproportionate to sulcal prominence. Findings may be related to degree of central greater focal cortical volume loss. Consider normal pressure hydrocephalus (NPH) only in the proper cortical setting. Extra axial spaces: No mass, no fluid collection. Parenchyma: No mass, acute hemorrhage or acute ischemia. Chronic cortical/subcortical insult with encephalomalacia, gliosis and laminar process which extends from the left superior parietal lobule into the left inferior parietal lobule, posterior left temporal lobe and lateral occipital lobe in the distal left MCA territory/MCA cortical border zone. A few scattered and mildly confluent T2 FLAIR hyperintense foci in the supratentorial white matter are nonspecific but most compatible with chronic microvascular ischemic changes. Unchanged small chronic lacunar insult in the left superior cerebellum. Suprasellar region: No abnormalities. Craniocervical junction: Patent foramen magnum. No Chiari malformation. Vessels: Unchanged signal abnormality in the distal left cervical ICA flow-void which may be related to flow-limiting stenosis and cannot be further evaluated on this exam. The major flow voids of the remaining intracranial arteries and dural venous sinuses are maintained. Incidental findings: Nonspecific T2 hyperintense reactive changes in the mastoids. IMPRESSION: No acute ischemia or other acute abnormalities. No changes from the previous brain MRI of 08/05/2017. Chronic findings: 1. Moderate generalized volume loss. 2. Chronic cortical-based left parietotemporal vascular insult. 3. Moderate microvascular ischemic changes with small chronic left cerebellar lacunar infarct. 4. Small chronic left cerebellar lacunar infarct. 5. Nonspecific ventriculomegaly as described. 6. Abnormal left cervical ICA flow-void. Cervical and intracranial MRAs or CTA could further evaluate. Signed by: Dr. Gregg Phan M.D. on 11/04/2017 1:26 PM
== END 2017-11-04 13:06 | disposition home health service (06) | DRG 57 ==
LOC: ER 16:44 → ERHOLD 23:32 → MED/SURG2 11-03 00:38
PROVIDERS: ADMIT Internal Medicine Cardiovascular Disease; ATTEND Internal Medicine Cardiovascular Disease
DX: I69.318 Other symptoms and signs involving cognitive functions following cerebral infarction (principal); I69.351 Hemiplegia and hemiparesis following cerebral infarction affecting right dominant side; I16.1 Hypertensive emergency; R29.810 Facial weakness; I48.91 Unspecified atrial fibrillation; I10 Essential (primary) hypertension; E11.9 Type 2 diabetes mellitus without complications; Z79.4 Long term (current) use of insulin; F03.90 Unspecified dementia, unspecified severity, without behavioral disturbance, psychotic disturbance, mood disturbance, and anxiety; I69.320 Aphasia following cerebral infarction; I69.322 Dysarthria following cerebral infarction; Z79.01 Long term (current) use of anticoagulants; Z79.82 Long term (current) use of aspirin
CPT/HCPCS: 36415; 70450; 70551; 71045; 80048; 80053; 80061; 81001; 82948; 83036; 83605; 85025; 85610; 87040; 87071; 87205; 93005; 99284